=== PATIENT | male | born 1985 | race Hispanic/Latino ===

== ENCOUNTER 2017-10-16 23:59 | Emergency (ER) | payer OTHER ==
[2017-10-17 00:06] VITALS: BP 168/95; PULSE 65; RESP 20; TEMP 98.8; O2SAT 98
[2017-10-17] MEDS ORDERED: Bacitracin Ointment 30 GM TUBE TOP STA (00:45)
[2017-10-17] MEDS ORDERED: Bacitracin 500 Units/gm Oint Foilpak UD ONE (00:49)
--- NOTE | 2017-10-17 00:51 | C.PDOC ---
History Of Present Illness 32 year old male presents to the ER sustaining a laceration [employer]. Patient states there was a metal coil sticking out of the wall and he cut his finger on it. Patient is up to date with tetanus. Denies weakness or numbness. Time Seen by Provider: 10/17/17 00:14 Chief Complaint (Nursing): Abnormal Skin Integrity History Per: Patient History/Exam Limitations: no limitations Onset/Duration Of Symptoms: Hrs Current Symptoms Are (Timing): Still Present Location Of Injury: Left: Hand Quality Of Symptoms: Other (Laceration) Recent travel outside of the [place]: No Past Medical History Reviewed: Historical Data, Nursing Documentation, Vital Signs Vital Signs: Last Vital Signs Temp 98.8 F 10/17/17 00:03 Pulse 65 10/17/17 00:03 Resp 20 10/17/17 00:03 BP 168/95 H 10/17/17 00:03 Pulse Ox 98 10/17/17 02:04 Family History: States: Unknown Family Hx - Social History Hx Alcohol Use: Yes Hx Substance Use: No Review Of Systems Musculoskeletal: Positive for: Hand Pain Skin: Positive for: Other (Laceration) Neurological: Negative for: Weakness, Numbness Physical Exam - Physical Exam Appears: Non-toxic Skin: Warm, Dry Head: Atraumatic, Normacephalic Eye(s): bilateral: Normal Inspection Extremity: Normal ROM (x4), Capillary Refill (<2 seconds), Other (2.5cm laceration to left 2nd finger) Pulses: Left Radial: Normal, Right Radial: Normal Neurological/Psych: Oriented x3, Normal Speech, Normal Motor, Normal Sensation ED Course And Treatment O2 Sat by Pulse Oximetry: 98 (Room air) Pulse Ox Interpretation: Normal Laceration - Laceration Repair Left hand Wound Length (In cm): 2.5 Description Of Wound: Linear Wound Cleansed With: Sterile Saline Anesthesia: Lidocaine 1% Wound Examination: Irrigated With Saline, No FB With Wound Exploration, No Tendon Injury With Wound Exploration Wound Closure: Suture (x3) Suture Technique And Material Used: Nylon (4-0) Wound Complexity: Simple Medical Decision Making Medical Decision Making: Patient tolerated laceration repair without any difficulty, bacitracin and dressing applied. Patient given proper wound care instructions and advised to follow up for suture removal. Disposition Counseled Patient/Family Regarding: Diagnosis, Need For Followup, Rx Given - Disposition Disposition: HOME/ ROUTINE Disposition Time: 00:51 Condition: GOOD Additional Instructions: Keep area clean and dry. May wash gently with soap and water, do not use alcohol or iodine solution. Change dressing 1-2 times daily. Return to ER if fever occurs, redness or swelling around wound, pus in the wound. 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 - Scribe Statement The provider has reviewed the documentation as recorded by the Scriblazara Castro All medical record entries made by the Joshiblazara were at my direction and personally dictated by me. I have reviewed the chart and agree that the record accurately reflects my personal performance of the history, physical exam, medical decision making, and the department course for this patient. I have also personally directed, reviewed, and agree with the discharge instructions and disposition.
== END 2017-10-17 01:00 | disposition home or self-care (01) ==
LOC: C.ER 23:59
DX: S61.211A Laceration without foreign body of left index finger without damage to nail, initial encounter (principal); W45.8XXA Other foreign body or object entering through skin, initial encounter